=== PATIENT | male | born 1970 | race Native Hawaiian/Other Pacific Islander ===

== ENCOUNTER 2016-05-26 01:23 | Emergency (ER) | payer SELFPAY ==
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
[2016-05-26] MEDS ORDERED: XYLOCAINE 0.5%/ EPI 1:200,000 INFILTRATI ONE (07:26)
[2016-05-26] MEDS ORDERED: BOOSTRIX IM ONE (07:26)
[2016-05-26] MEDS ORDERED: XYLOCAINE 1%/ EPI 1:100,000 INFILTRATI ONE ×2 (08:06→08:10)
[2016-05-26] MEDS ORDERED: TRIPLE ANTIBIOTIC TP ONE (08:44)
[2016-05-26] MEDS ORDERED: ANCEF IM ONE (08:44)
[2016-05-26] MEDS ORDERED: WATER FOR INJ (PF) 10 ML ONE (08:58)
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
[2016-05-26 09:42] VITALS: BP 150/85
--- NOTE | 2016-05-26 09:53 | XRay Report ---
Bilateral hands: History: Injury. Findings: No articular abnormality. No fracture dislocation or periosteal reaction. No soft tissue calcification. Impression: Essentially negative right and left hand.
== END 2016-05-26 10:12 | disposition home or self-care (01) ==
LOC: ED 01:23
DX: S01.01XA Laceration without foreign body of scalp, initial encounter (principal); Y00.XXXA Assault by blunt object, initial encounter; Y93.89 Activity, other specified; Y99.8 Other external cause status; Y92.89 Other specified places as the place of occurrence of the external cause
CPT/HCPCS: 12002; 70450; 73130; 90471; 90715; 96372; 99284; J0690; A6250

== ENCOUNTER 2016-06-01 18:16 | Emergency (ER) | payer SELFPAY ==
[2016-06-01 18:57] VITALS: BP 148/91
--- NOTE | 2016-06-01 21:32 | Emergency Department Report ---
Suture/Staple Removal - HPI Chief Complaint: Laceration/Recheck/Suture Stated Complaint: DELON REMOVED Time Seen by Provider: 06/01/16 21:23 When Sutures or Delon Placed: 5-7 Days Ago Wound Location: scalp ED Review of Systems ROS: Stated complaint: DELON REMOVED Other details as noted in HPI Constitutional: denies: fever Skin: other (no drainage from staple site ). denies: change in color Neurological: denies: headache ED Past Medical Hx - Past Medical History Previous Medical History?: No - Surgical History Past Surgical History?: No - Social History Smoking Status: Never Smoker Substance Use Type: Alcohol - Medications Home Medications: Home Medications Medication Instructions Recorded Confirmed Last Taken Type Sulfamethoxazole/Trimethoprim 1 each PO BID #20 tablet 05/26/16 Unknown Rx [Bactrim DS TAB] traMADol [Ultram 50 MG tab] 50 mg PO Q4HR PRN #15 tablet 05/26/16 Unknown Rx Suture Removal Exam - Exam General: Vital signs noted. No distress. Alert and acting appropriately. Wound: No Pathologic Erythema, No Tenderness, No Drainage, No Pus, No Wound Dehiscence Other Systems: All other systems reviewed and are unremarkable. ED Course Vital Signs 06/01/16 18:55 Temperature 98.1 F Pulse Rate 74 Respiratory 18 Rate Blood Pressure 148/91 [Left] O2 Sat by Pulse 98 Oximetry - Reevaluation(s) Reevaluation #1: 06/01/16 21:28 I removed 7 delon from Monico's scalp. He tolerated it well and their was no wound dehiscence - Pulse Oximetry Interpretation Digit-Finger Initial Pulse Oximetry Readin Actions Taken: none ED Recheck MDM - Differential Diagnosis Wound Recheck, Suture/Staple Removal Critical Care Time: No Critical care attestation.: If time is entered above; I have spent that time in minutes in the direct care of this critically ill patient, excluding procedure time. ED Disposition Clinical Impression: Encounter for staple removal Disposition: DISCHARGED TO HOME OR SELFCARE Is pt being admited?: No Does the pt Need Aspirin: No Condition: Stable Instructions: Suture Removal (ED) Referrals: CONCHIS BABCOCK MD [Staff Physician] - 3-5 Days [facility] [Outside] - 3-5 Days Time of Disposition: 21:32
== END 2016-06-01 21:45 | disposition home or self-care (01) ==
LOC: ED 18:16
DX: Z48.02 Encounter for removal of sutures (principal)